=== PATIENT | male | born 1990 | race African-American/Black ===

== ENCOUNTER 2017-09-09 23:53 | Emergency (ER) | payer BC, OTHER ==
--- NOTE | 2017-09-10 01:13 | EDM.PDOC ---
ED HPI GENERAL MEDICAL PROBLEM - General Chief Complaint: Genitourinary Problem Stated Complaint: RIPPED INCISION ON TESTICLE Time Seen by Provider: 09/10/17 00:04 Source of Information: Reports: Patient History Limitations: Reports: No Limitations - History of Present Illness INITIAL COMMENTS - FREE TEXT/NARRATIVE: This is a 27-year-old male. He had a hydrocele surgery and a varicose vein surgery on his testicles about 2 weeks ago. Apparently the hydrocele on the right has decreased in size and the one on the left is still about the same and he was told it was full of blood. Tonight worried they did the incision for the hydrocele began to leak old dark blood. He is having no particular pain is no evidence of any infection but because of the bleeding and the continued oozing he comes to the ER for evaluation. He was told by the urologist that if it continues to be swollen on the right side they would have testicular needle in it and draw out some blood. I explained to him that we do not have that capability here and that he would need to go to [facility] for evaluation and continued treatment. - Related Data Allergies Allergy/AdvReac Type Severity Reaction Status Date / Time No Known Allergies Allergy Verified 09/10/17 00:06 Home Meds: Home Meds . [No Known Home Meds] 09/10/17 [History] Past Medical History - Past Health History Medical/Surgical History: Denies Medical/Surgical History - Past Surgical History Male Surgical History: Reports: Other (See Below) Other Male Surgeries/Procedures: Hydroceole Social & Family History - Tobacco Use Smoking Status *Q: Never Smoker Second Hand Smoke Exposure: No - Alcohol Use Days Per Week of Alcohol Use: 1 Number of Drinks Per Day: 2 Total Drinks Per Week: 2 - Recreational Drug Use Recreational Drug Use: No ED ROS GENERAL - Review of Systems Review Of Systems: See Below Constitutional: Denies: Fever, Chills HEENT: Reports: No Symptoms Respiratory: Reports: No Symptoms Cardiovascular: Reports: No Symptoms Endocrine: Reports: No Symptoms GI/Abdominal: Reports: No Symptoms : Reports: Other (As per history of present illness) Musculoskeletal: Reports: No Symptoms Skin: Reports: No Symptoms Neurological: Reports: No Symptoms Psychiatric: Reports: No Symptoms Hematologic/Lymphatic: Reports: No Symptoms Immunologic: Reports: No Symptoms ED EXAM, RENAL/ - Physical Exam Exam: See Below Exam Limited By: No Limitations General Appearance: Alert, WD/WN, No Apparent Distress Eye Exam: Bilateral Eye: Normal Inspection Ears: Normal External Exam Nose: Normal Inspection Throat/Mouth: Normal Inspection, Normal Lips, Normal Voice, No Airway Compromise Head: Normocephalic Neck: Supple Respiratory/Chest: No Respiratory Distress GI/Abdominal: Soft (Male) Exam: Other (Examination of the testicles reveals some enlargement especially on the right side in the midline incision underneath his scrotum there is constant oozing of dark blood, he denies any particular tenderness there is no redness is no swelling there is no evidence of infection) Back Exam: Full Range of Motion Extremities: Normal Inspection, Normal Range of Motion Neurological: Alert, Oriented Psychiatric: Normal Affect, Normal Mood Skin Exam: Warm, Dry Course - Vital Signs Last Recorded V/S: Last Vital Signs Temp 98.2 F 09/10/17 00:07 Pulse 87 09/10/17 00:07 Resp 16 09/10/17 00:07 BP 125/78 09/10/17 00:07 Pulse Ox 100 09/10/17 00:07 - Re-Assessments/Exams Free Text/Narrative Re-Assessment/Exam: 09/10/17 01:13 I spoke to the patient regarding what Dr. Hernandez at said regarding the seroma that develops in the hydrocele and oozing just have to keep it covered and watch for infection and hopefully oozing will stop. Dr. Hernandez did suggest that the patient follow-up with Dr. Skaggs this week for recheck. Departure - Departure Time of Disposition: 01:01 Disposition: Home, Self-Care 01 Condition: Fair Clinical Impression: Status post repair of hydrocele, Scrotal bleeding - Discharge Information Referrals: Lori Cho PA-C [Primary Care Provider] - Additional Instructions: I would encourage you to see Dr. Skaggs this week or go to if the symptoms worsen or you think there might be an infection for evaluation of oozing blood and drainage of the right scrotal hydrocele, return to the ER if needed
== END 2017-09-10 01:28 | disposition home or self-care (01) ==
LOC: JD.ED 23:53
DX: N99.820 Postprocedural hemorrhage of a genitourinary system organ or structure following a genitourinary system procedure (principal); N99.842 Postprocedural seroma of a genitourinary system organ or structure following a genitourinary system procedure
CPT/HCPCS: 99283

== ENCOUNTER 2022-02-16 19:49 | Emergency (ER) | payer OTHER, BC | END 2022-02-16 22:03 | disposition home or self-care (01) | LOC: JD.ED 19:49 | DX: S00.83XA Contusion of other part of head, initial encounter (principal); V49.10XA Passenger injured in collision with unspecified motor vehicles in nontraffic accident, initial encounter; Y92.410 Unspecified street and highway as the place of occurrence of the external cause | CPT/HCPCS: 99283 ==

== ENCOUNTER 2022-05-12 11:48 | Emergency (ER) | payer BC ==
[2022-05-12] MEDS ORDERED: Aspirin 81 MG Tab.Chew PO ONE (12:36)
== END 2022-05-12 15:30 | disposition home or self-care (01) ==
LOC: JD.ED 11:48
DX: I30.9 Acute pericarditis, unspecified (principal); Z79.899 Other long term (current) drug therapy
CPT/HCPCS: 36415; 71046; 80053; 84484; 85025; 85652; 86140; 93005; 99285; A9270

== ENCOUNTER 2023-03-12 02:32 | Emergency (ER) | payer BC ==
[2023-03-12] MEDS ORDERED: Aspirin 325 MG Tab.EC PO ONE (02:49)
[2023-03-12 02:56] LABS: BASOPHILS ABSOLUTE AUTO 0.02 K/mm3 (0.01-0.08); BASOPHILS PERCENT AUTO 0.2 % (0.1-1.2); EOSINOPHILS ABSOLUTE AUTO 0.14 K/mm3 (0.04-0.54); EOSINOPHILS PERCENT AUTO 1.3 (0.8-7.0); HEMOGLOBIN 13.8 gm/dl (13.7-17.5); IMMATURE GRAN ABSOLUTE AUTO 0.02 K/mm3 (0.00-0.10); IMMATURE GRAN PERCENT AUTO 0.2 % (<=1.0); LYMPHOCYTES ABSOLUTE AUTO 2.96 K/mm3 (1.32-3.57); LYMPHOCYTES PERCENT AUTO 26.5 % (21.8-53.1); MEAN CORPUSCULAR HEMOGLOBIN 26.2 pg (25.7-32.2); MEAN CORPUSCULAR HGB CONC 32.1 g/dl (32.2-35.5); MEAN CORPUSCULAR VOLUME 81.6 fl (79.0-92.2); MEAN PLATELET VOLUME 10.5 fl (9.4-12.3); MONOCYTES ABSOLUTE AUTO 0.98 K/mm3 (0.30-0.82); MONOCYTES PERCENT AUTO 8.8 % (5.3-12.2); NEUTROPHILS ABSOLUTE AUTO 7.07 K/mm3 (1.78-5.38); PLATELET COUNT,PLT 255 K/mm3 (163-337); RED BLOOD CELL COUNT 5.27 M/mm3 (4.63-6.08); WHITE BLOOD CELL COUNT,WBC 11.19 K/mm3 (4.23-9.07)
[2023-03-12 03:15] LABS: INR 1.06; PROTHROMBIN TIME 11.3 SECONDS (9.7-12.0)
[2023-03-12] MEDS ORDERED: Colchicine 0.6 MG Tab PO ONE (03:19)
[2023-03-12 03:23] LABS: ANION GAP 13.6 (5-15); BILIRUBIN TOTAL 0.3 mg/dL (0.2-1.0); BUN/CREATININE RATIO 9.2 (14-18); CREATININE 1.2 mg/dL (0.7-1.3); EST CRCL DRUG DOSING (CG) 95.87 mL/min; POTASSIUM,K 3.6 mEq/L (3.5-5.1); PROTEIN TOTAL,TP 8.2 g/dl (6.4-8.2)
[2023-03-12 03:26] LABS: D-DIMER QUANTITATIVE < 0.19 mg/L (0.19-0.50)
[2023-03-12] MEDS ORDERED: Ondansetron 4 MG/2 ML SDV IVPUSH ONE (03:52)
[2023-03-12] MEDS ORDERED: Morphine 4 MG/ML Syringe IVPUSH ONE (03:52)
== END 2023-03-12 04:23 | disposition home or self-care (01) ==
LOC: JD.ED 02:32
DX: I30.9 Acute pericarditis, unspecified (principal)
CPT/HCPCS: 36415; 71045; 80053; 84484; 85025; 85379; 85610; 93005; 96374; 96375; 99285; A9270; J2270; J2405; 93010; 99284

== ENCOUNTER 2024-06-28 10:28 | Emergency (ER) | payer BC ==
[2024-06-28] MEDS ORDERED: Sodium Chloride 0.9% 10 ML Syringe FLUSH PRN (10:46)
[2024-06-28] MEDS: Aspirin 81 MG Tab.Chew PO ONE (11:00)
[2024-06-28 11:08] LABS: BASOPHILS PERCENT AUTO 0.2 % (0.0-1.0); EOSINOPHILS ABSOLUTE AUTO 0.1 K/mm3 (0.0-0.4); EOSINOPHILS PERCENT AUTO 1.6 % (0.0-6.0); HEMATOCRIT 42.8 % (42.0-52.0); HEMOGLOBIN 13.5 gm/dl (14.0-18.0); IMMATURE GRAN ABSOLUTE AUTO 0.01 K/mm3 (0.00-0.05); IMMATURE GRAN PERCENT AUTO 0.2 % (0.0-0.4); LYMPHOCYTES ABSOLUTE AUTO 2.5 K/mm3 (1.0-4.8); LYMPHOCYTES PERCENT AUTO 38.8 % (24.0-44.0); MEAN CORPUSCULAR HEMOGLOBIN 26.3 pg (28.0-32.0); MEAN CORPUSCULAR HGB CONC 31.5 g/dl (32.0-36.0); MEAN CORPUSCULAR VOLUME 83.3 fl (83.0-99.0); MEAN PLATELET VOLUME 10.1 fl (9.4-12.4); MONOCYTES ABSOLUTE AUTO 0.5 K/mm3 (0.0-0.8); NEUTROPHILS ABSOLUTE AUTO 3.3 K/mm3 (1.8-7.7); NEUTROPHILS PERCENT AUTO 51.2 % (41.0-71.0); PLATELET COUNT,PLT 276 K/mm3 (150-400); RED BLOOD CELL COUNT 5.14 M/mm3 (4.52-5.90); WHITE BLOOD CELL COUNT,WBC 6.36 K/mm3 (3.9-11.3)
[2024-06-28 11:26] LABS: ALANINE AMINOTRANSFERASE,ALT 39 U/L (16-63); ALBUMIN 3.7 g/dl (3.4-5.0); ALKALINE PHOSPHATASE 110 U/L (46-116); ASPARTATE AMNIOTRANSFERASE,AST 21 U/L (15-37); BILIRUBIN TOTAL 0.2 mg/dL (0.2-1.0); BLOOD UREA NITROGEN,BUN 10 mg/dL (7-18); BUN/CREATININE RATIO 9.1 (14-18); C-REACTIVE PROTEIN 0.33 mg/dL (<0.30); CALCIUM 8.7 mg/dL (8.5-10.1); CARBON DIOXIDE,CO2 30 mEq/L (21-32); CHLORIDE,CL 105 mEq/L (98-107); CREATININE 1.1 mg/dL (0.7-1.3); EST CRCL DRUG DOSING (CG) 103.63 mL/min; ESTIMATED GFR 92 mL/min (>60); GLUCOSE RANDOM 93 mg/dL (70-99); PROTEIN TOTAL,TP 7.4 g/dl (6.4-8.2); SODIUM,NA 140 mEq/L (136-145)
[2024-06-28 11:27] LABS: TROPONIN I HIGH SENSITIVITY < 4 pg/mL (<=76)
== END 2024-06-28 12:37 | disposition home or self-care (01) ==
LOC: JD.ED 10:28
DX: I30.9 Acute pericarditis, unspecified (principal); Z79.899 Other long term (current) drug therapy
CPT/HCPCS: 36415; 71045; 71045-26; 80053; 84484; 85025; 85652; 86140; 93005; 99285; A9270-GY